=== PATIENT | male | born 1970 | race Hispanic/Latino ===

== ENCOUNTER 2018-06-15 14:25 | Outpatient (CLI) | payer MEDICARE, MEDICAID | END 2018-06-15 14:26 | disposition home or self-care (01) | LOC: C.LAB 14:25 | DX: F25.1 Schizoaffective disorder, depressive type (principal); Z79.899 Other long term (current) drug therapy ==

== ENCOUNTER 2018-07-20 15:43 | Outpatient (CLI) | payer MEDICARE, MEDICAID | END 2018-07-20 15:44 | disposition home or self-care (01) | LOC: C.LAB 15:43 | DX: F25.1 Schizoaffective disorder, depressive type (principal); Z79.899 Other long term (current) drug therapy; F72 Severe intellectual disabilities ==

== ENCOUNTER 2018-08-17 15:52 | Outpatient (CLI) | payer MEDICARE, MEDICAID | END 2018-08-17 15:53 | disposition home or self-care (01) | LOC: C.LAB 15:52 | DX: Z79.899 Other long term (current) drug therapy (principal); F42.8 Other obsessive-compulsive disorder; F25.1 Schizoaffective disorder, depressive type ==

== ENCOUNTER 2018-09-14 15:56 | Outpatient (CLI) | payer MEDICARE, MEDICAID | END 2018-09-14 15:57 | disposition home or self-care (01) | LOC: C.LAB 15:56 | DX: F25.1 Schizoaffective disorder, depressive type (principal); F42.8 Other obsessive-compulsive disorder; Z79.899 Other long term (current) drug therapy ==

== ENCOUNTER 2018-10-12 14:39 | Outpatient (CLI) | payer MEDICARE, MEDICAID | END 2018-10-12 14:40 | disposition home or self-care (01) | LOC: C.LAB 14:39 ==